=== PATIENT | female | born 1995 | race Caucasian/White ===

== ENCOUNTER 2020-09-04 16:25 | Observation (INO) | payer OTHER ==
[~2020-09-04] VITALS: Ht 142.2 cm; Wt 98.0 kg
[~2020-09-04 16:25] MED LIST: KEFLEX CAP 500500 MG PO; LODINE CAP 300300 MG PO; ZOFRAN ODT 4 MG4 MG PO
[2020-09-04 19:27] LABS: HEMOGLOBIN 13.9 gm/dl (12.3-15.3); RED BLOOD COUNT 4.66 M/UL (4.00-5.10); WHITE BLOOD COUNT 11.3 K/UL (4.5-11.0)
[2020-09-04 19:47] LABS: BUN/CREATININE RATIO 11 (0-10)
[2020-09-05 12:47] LABS: HEMOGLOBIN 12.7 gm/dl (12.3-15.3); RED BLOOD COUNT 4.33 M/UL (4.00-5.10)
[2020-09-05 12:48] LABS: WHITE BLOOD COUNT 7.5 K/UL (4.5-11.0)
[2020-09-05] MEDS ORDERED: LEVOTHYROXINE137 MC1 PO (12:50)
[2020-09-05] MEDS ORDERED: FLONASE 0.05% N16 GM (12:51)
[2020-09-05 13:25] LABS: BUN/CREATININE RATIO 12 (0-10)
[2020-09-06 03:21] LABS: HEMOGLOBIN 12.6 gm/dl (12.3-15.3); RED BLOOD COUNT 4.34 M/UL (4.00-5.10); WHITE BLOOD COUNT 8.3 K/UL (4.5-11.0)
[2020-09-06 03:50] LABS: BUN/CREATININE RATIO 15 (0-10)
[2020-09-06] MEDS ORDERED: GYNE-LOTRIMIN-745 GM VG (17:22)
[2020-09-06] MEDS ORDERED: AUGMENTIN 875-1 EACH PO (17:22)
[2020-09-06] MEDS ORDERED: IBUPROFEN800 MG PO (17:22)
[2020-09-06] MEDS ORDERED: GLUCOTROL5 MG PO (18:30)
[2020-09-06] MEDS ORDERED: LANTUS INS100 UTS/M1 SC ×2 (18:30)
== END 2020-09-06 18:57 | disposition home or self-care (01) ==
LOC: MED SURG 4 16:25
PROVIDERS: Obstetrics & Gynecology; Physician Assistant; ADMIT Obstetrics & Gynecology
DX: L02.214 Cutaneous abscess of groin (principal); I10 Essential (primary) hypertension; F41.8 Other specified anxiety disorders; E03.9 Hypothyroidism, unspecified; J45.909 Unspecified asthma, uncomplicated; E78.5 Hyperlipidemia, unspecified; E11.65 Type 2 diabetes mellitus with hyperglycemia; Z82.49 Family history of ischemic heart disease and other diseases of the circulatory system; E66.9 Obesity, unspecified; Z88.1 Allergy status to other antibiotic agents; Z83.3 Family history of diabetes mellitus; Z80.0 Family history of malignant neoplasm of digestive organs; Z79.4 Long term (current) use of insulin; Z79.899 Other long term (current) drug therapy; Z68.42 Body mass index [BMI] 45.0-49.9, adult
CPT/HCPCS: 36415; 80048; 80053; 82550; 82962; 83036; 84703; 85025; 85027; 96374; 96375; 96376; G0378; G0379; J0295; J0878; J7030

== ENCOUNTER 2021-12-25 06:20 | Inpatient (IN) | payer OTHER ==
[~2021-12-25] VITALS: Ht 142.2 cm; Wt 91.2 kg
[~2021-12-25 06:20] MED LIST changes: +AUGMENTIN 875-1 EACH PO; +FLONASE 0.05% N16 GM; +GLUCOTROL5 MG PO; +GYNE-LOTRIMIN-745 GM VG; +IBUPROFEN800 MG PO; +LANTUS INS100 UTS/M1 SC; +LEVOTHYROXINE137 MC1 PO
[2021-12-25 06:49] LABS: RED BLOOD COUNT 5.21 M/UL (4.00-5.10); WHITE BLOOD COUNT 14.8 K/UL (4.5-11.0)
[2021-12-25 07:48] LABS: BUN/CREATININE RATIO 19 (0-10)
[2021-12-25 07:53] LABS: HEMOGLOBIN 14.7 gm/dl (12.3-15.3)
[2021-12-26 03:13] LABS: RED BLOOD COUNT 5.09 M/UL (4.00-5.10)
[2021-12-26 03:22] LABS: WHITE BLOOD COUNT 8.2 K/UL (4.5-11.0)
[2021-12-26 03:52] LABS: BUN/CREATININE RATIO 9 (0-10)
[2021-12-26] MEDS ORDERED: LANTUS100 UNIT/1 SQ (12:48)
[2021-12-26] MEDS ORDERED: FENOFIBRATE48 MG PO ×2 (12:55→17:03)
[2021-12-26] MEDS ORDERED: MULTIVITAMIN1 EACH PO ×2 (12:58→17:03)
[2021-12-26 15:13] LABS: BUN/CREATININE RATIO 9 (0-10)
[2021-12-26] MEDS ORDERED: ATORVASTATIN CA40 MG PO (17:03)
[2021-12-27 06:38] LABS: BUN/CREATININE RATIO 9 (0-10)
[2021-12-27] MEDS ORDERED: INSULIN GL100 UNIT/4 SQ (10:46)
[2021-12-27] MEDS ORDERED: OYSTER SHELL 51 EAC2 PO (10:46)
[2021-12-27] MEDS ORDERED: THERAGRAN M TAB1 EA PO (10:46)
[2021-12-27] MEDS ORDERED: INSULIN LI100 UNIT/2 SQ (10:46)
[2021-12-27] MEDS ORDERED: FENOFIBRATE48 MG PO (10:48)
[2021-12-28 12:23] LABS: HEMOGLOBIN 11.6 gm/dl (12.3-15.3); RED BLOOD COUNT 4.18 M/UL (4.00-5.10)
[2021-12-28 12:34] LABS: BUN/CREATININE RATIO 14 (0-10)
[2021-12-29 06:33] LABS: HEMOGLOBIN 10.8 gm/dl (12.3-15.3); RED BLOOD COUNT 3.88 M/UL (4.00-5.10); WHITE BLOOD COUNT 7.6 K/UL (4.5-11.0)
[2021-12-29 07:08] LABS: BUN/CREATININE RATIO 10 (0-10)
[2021-12-29] MEDS ORDERED: FENOFIBRATE48 MG PO (15:50)
[2021-12-29] MEDS ORDERED: LANTUS100 UNIT/1 SQ (15:50)
[2021-12-29] MEDS ORDERED: ATORVASTATIN CA80 MG PO (15:50)
[2021-12-29] MEDS ORDERED: OYSTER SHELL 51 EAC2 PO (16:00)
[2021-12-29] MEDS ORDERED: PROTONIX 40 MG40 M1 PO (16:16)
[2021-12-29] MEDS ORDERED: ZOFRAN 4 MG TAB4 MG PO ×2 (16:16→17:13)
[2021-12-29] MEDS ORDERED: ROXICODONE TAB 55 MG PO ×2 (16:16→17:13)
[2021-12-29] MEDS ORDERED: OMNICEF 300 MG300 MG PO (16:18)
[2021-12-29] MEDS ORDERED: HUMALOG 10100 UNITS/ SC (17:15)
[2021-12-29] MEDS ORDERED: MAGNESIUM OXID400 M1 PO (17:27)
[2021-12-29] MEDS ORDERED: DIFLUCAN150 MG PO (18:27)
== END 2021-12-29 18:46 | disposition home or self-care (01) | DRG 439 ==
LOC: ER1 06:20 → CDU 13:50 → MED SURG 4 13:50
PROVIDERS: Family Medicine; Internal Medicine; Physician Assistant; ADMIT Internal Medicine
DX: K85.90 Acute pancreatitis without necrosis or infection, unspecified (principal); N30.00 Acute cystitis without hematuria; Z68.42 Body mass index [BMI] 45.0-49.9, adult; E78.1 Pure hyperglyceridemia; E03.9 Hypothyroidism, unspecified; E11.9 Type 2 diabetes mellitus without complications; E83.51 Hypocalcemia; E66.01 Morbid (severe) obesity due to excess calories; F17.210 Nicotine dependence, cigarettes, uncomplicated; Z86.16 Personal history of COVID-19; Z90.49 Acquired absence of other specified parts of digestive tract; Z88.1 Allergy status to other antibiotic agents; Z83.3 Family history of diabetes mellitus; Z82.49 Family history of ischemic heart disease and other diseases of the circulatory system; Z80.9 Family history of malignant neoplasm, unspecified
CPT/HCPCS: 36415; 76705; 80053; 80061; 81001; 82009; 82803; 82962; 82977; 83036; 83690; 83735; 83970; 84100; 84439; 84443; 84478; 84703; 85025; 85027; 93005; 96361; 96374; 96375; 96376; 99285; J0610; J0696; J1170; J2270; J2405; J2550; J3475; Q9967